=== PATIENT | male | born 1935 | race Caucasian/White ===

== ENCOUNTER 2016-10-08 22:47 | Inpatient (IN) | payer MEDICARE, BC ==
[~2016-10-08] VITALS: Ht 170.2 cm; Wt 64.4 kg
--- NOTE | 2016-10-08 23:00 | NUR ---
REPAIRER AUTO CLOCKS ADMISSION PT ARRIVED ON UNIT. AAOX4, NO C/O OF PAIN OR DISCOMFORT, NO S/S OF RESPIRATORY DISTRESS. NO N/V/D OR FEELING DIZZY. TELE SHOWING SR. SKIN ISSUES NOTED. B/L FEET RED AND +1 NON-PITTING. PT STATES HE WAS HOSPITALIZED 4 WEEKS AGO FOR DVT IN LEGS --> ON COUMADIN. IV INTACT AND PATENT. V/S STABLE AT THIS TIME. PATIENT ORIENATED TO UNIT AND CALL LIGHT. AWAITING MD ORDERS. WILL CONT TO MONITOR.
[2016-10-09] MEDS ORDERED: ZOLPIDEM TARTRATE 5 MG TABLET PO PRN
[2016-10-09] MEDS ORDERED: ENOXAPARIN SODIUM 30 MG/0.3 ML DISP.SYRIN SQ SCH
[2016-10-09] MEDS: CEFTRIAXONE 1 G in IV D5W 50 ML IV SCH ×2
[2016-10-09] MEDS ORDERED: ACETAMINOPHEN 325 MG TABLET PO PRN
[2016-10-09] MEDS ORDERED: Z GUARD REMEDY 2 OZ OINT TP PRN
[2016-10-09] MEDS ORDERED: ONDANSETRON HCL/PF 4 MG/2 ML VIAL IVP PRN
--- NOTE | 2016-10-09 00:19 | NUR ---
RN NOTE GINGER ESPARZA, PT RECEIVED 1 GRAM @ 1600 10/08 AT [facility]
--- NOTE | 2016-10-09 00:50 | NUR ---
RN NOTE PT REFUSED LOVENOX DESPITE ENCOURAGEMENT AND TEACHING X3. WILL MONITOR.
[2016-10-09] MEDS ORDERED: IV SET PRIMARY PUMP SET 1 EA INFUS.SET MC ONE (01:22)
[2016-10-09] MEDS ORDERED: IV NS 0.9% 1,000 ML ONE (01:22)
[2016-10-09] MEDS ORDERED: SULF500T6 PO (02:57)
[2016-10-09] MEDS ORDERED: PRED10TA PO (02:57)
[2016-10-09] MEDS ORDERED: CARB1TAB21 PO (02:57)
[2016-10-09] MEDS ORDERED: WARF2.5T6 PO (02:57)
[2016-10-09] MEDS ORDERED: OXYB5TAB11 PO (02:57)
[2016-10-09] MEDS ORDERED: WARF5TAB6 PO (02:57)
[2016-10-09] MEDS ORDERED: FOLI1TAB16 PO (02:57)
[2016-10-09] MEDS ORDERED: BUPR150T10 PO (02:57)
--- NOTE | 2016-10-09 06:08 | NUR ---
RN NOTE NO SIGNIFICANT CHANGES THIS SHIFT. PT RESTING WITH EYES CLOSED. NO DISTRESS AT THIS TIME. BREATHING NON-LABORED AND EVEN ON ROOM. TELE SHOWING SR. IV INTACT, TOLERATING FLUIDS WELL. CALL LIGHT IN REACH, FALL PRECAUTIONS RENDERED. WILL F/U WITH DAY SHIFT FOR RICKEY.
[2016-10-09 06:19] LABS: APPEARANCE,URINE CLEAR (CLEAR); BILIRUBIN,URINE NEGATIVE (NEGATIVE); BLOOD, URINE 1+ Ery/uL (NEGATIVE); COLOR,URINE YELLOW (YELLOW); KETONES,URINE NEGATIVE (NEGATIVE); LEUKOCYTE ESTERASE ,URINE NEGATIVE (NEGATIVE); NITRITE, URINE NEGATIVE (NEGATIVE); PROTEIN,URINE NEGATIVE (NEGATIVE); UGLUCOSE TRACE mg/dL (NEGATIVE); UROBILINOGEN,URINE 0.2 EU/dL (0.2)
[2016-10-09 06:24] LABS: ADD URINE CULTURE NO; BACTERIA,URINE None seen /HPF (None Seen); RBC,URINE 0-2 /HPF (0-2); SQUAMOUS EPITHELIAL CELL,UR 0-2 /HPF (None Seen); WBC,URINE 0-2 /HPF (0-3)
--- NOTE | 2016-10-09 07:30 | NUR ---
CERTIFIED INDOOR ENVIRONMENTALIST NOTES RECEIVED PATIENT AWAKE ON BED, AOX3 ABLE TO MAKE NEEDS KNOWN, BREATHING EVEN AND NON LABORED. WITH IVF'S ON PROGRESS ON HIS LEFT WRIST INTACT AND PATENT. CALL LIGHT WITHIN REACH, BED IN LOW POSITION FOR SAFETY MEASURES. WILL CONTINUE TO MONITOR.
[2016-10-09 08:00] VITALS: BP 159/74
[2016-10-09 08:19] VITALS: BP 159/74
[2016-10-09 08:22] LABS: BASOPHILS % (AUTO) 0.2 % (0.0-2.0); EOSINOPHILS % (AUTO) 0.2 % (0.0-6.0); HEMATOCRIT 37 % (39-51); HEMOGLOBIN 11.8 g/dL (13.5-17.5); LYMPHOCYTES % (AUTO) 11.8 % (20.0-44.0); MEAN CORPUSCULAR HEMOGLOBIN 28 PG (26.0-33.0); MEAN CORPUSCULAR HGB CONC 32 g/dl (31.0-36.0); MEAN CORPUSCULAR VOLUME 88 fL (80-96); MONOCYTES # (AUTO) 0.8 /CMM (0.1-1.30); MONOCYTES % (AUTO) 9.6 % (2.0-12.0); NEUTROPHILS # (AUTO) 6.7 /CMM (1.8-8.9); NEUTROPHILS % (AUTO) 78.2 % (43.0-81.0); PLATELET COUNT (AUTO) 202 /CMM (150-450); RDW COEFFICIENT OF VARIATION 15.6 (11.5-15.0); RED BLOOD CELL COUNT(AUTO) 4.21 MIL/uL (4.5-6.0); WHITE BLOOD COUNT (AUTO) 8.5 K/uL (4.3-11.0)
[2016-10-09 08:44] LABS: ALBUMIN 2.7 g/dL (3.4-5.0); BILIRUBIN,TOTAL 0.4 mg/dL (0.2-1.0); CALCIUM, SERUM 7.6 mg/dL (8.5-10.1); CREATININE 1.2 mg/dL (0.6-1.3); MAGNESIUM 2.5 mg/dL (1.8-2.4); TOTAL PROTEIN, SERUM 5.9 g/dL (6.4-8.2)
[2016-10-09 08:50] LABS: THYROID STIMULATING HORMONE 0.805 uIU/mL (0.358-3.74)
--- NOTE | 2016-10-09 10:15 | NUR ---
NUCLEAR PROCESS ENGINEER NOTES PATIENT REFUSED TO DO HIS ECHOCARDIOGRAM. HE STATED THAT "MY HEART IS FINE'.
--- NOTE | 2016-10-09 10:40 | NUR ---
FOOT PRESS OPERATOR NOTES DR. SUÁREZ MADE AWARE PT REFUSED ECHOCARDIOGRAM.
--- NOTE | 2016-10-09 10:50 | NUR ---
CREDIT SUPPORT COUNSELOR NOTES DR. SUÁREZ MADE AWARE TO RECONCILE THE HOME MEDS.
[2016-10-09] MEDS: ENOXAPARIN SODIUM 40 MG/0.4 ML DISP.SYRIN SQ SCH (11:21)
[2016-10-09 12:00] VITALS: BP_SYST 140; BP_SYST 144; BP_SYST 146; BP_DIAS 80; BP_DIAS 81
[2016-10-09] MEDS: IV NS 0.9% 1,000 ML IV PRN (12:22)
--- NOTE | 2016-10-09 14:00 | NUR ---
MS RN NOTES SPOKE TO THE PATIENT'S RP RIVERA AND EXPLAINED THAT THE HOME MEDICATIONS NEED TO BE REVIEWED BY THE DOCTOR FIRST IF WE NEED TO CONTINUE OR NOT. RIVERA VERBALIZED UNDERSTANDING.
[2016-10-09 16:00] VITALS: BP 168/98
[2016-10-09] MEDS ORDERED: SULFADIAZINE 500 MG PO SCH (17:00)
--- NOTE | 2016-10-09 17:00 | NUR ---
INTERNAL REVIEW AND AUDIT COMPLIANCE NOTES DUE MEDS GIVEN, NEEDS ALL ATTENDED AND ANTICIPATED
[2016-10-09] MEDS: OXYBUTYNIN CHLORIDE 5 MG TABLET PO SCH (17:21)
[2016-10-09] MEDS: CARBIDOPA/LEVODOPA 25/100 MG 1 UDTAB PO SCH (17:21)
[2016-10-09] MEDS: SULFASALAZINE 500 MG TABLET PO SCH (18:32)
--- NOTE | 2016-10-09 19:01 | NUR ---
MS RN NOTES ENDORSED TO INCOMING SHIFT FOR CONTINUITY OF CARE. PATIENT ENCOURAGE TO USE HIS CALL LIGHT FOR ASSISTANCE.
--- NOTE | 2016-10-09 19:30 | NUR ---
ANALYSIS CONSULTANT NOTES RECEIVED PATIENT AWAKE ON BED, AOX3 ABLE TO MAKE NEEDS KNOWN, BREATHING EVEN AND NON LABORED. WITH IVF'S ON PROGRESS ON HIS LEFT WRIST INTACT AND PATENT. CALL LIGHT WITHIN REACH, BED IN LOW POSITION FOR SAFETY MEASURES. WILL CONTINUE TO MONITOR.
[2016-10-09 20:10] VITALS: BP 164/91
[2016-10-09 22:00] VITALS: BP 164/91
[2016-10-10] VITALS (7 sets, daily range): BP systolic 125–179; BP diastolic 71–96
[2016-10-10] MEDS: CEFTRIAXONE 1 G in IV D5W 50 ML IV SCH ×2
--- NOTE | 2016-10-10 00:30 | NUR ---
CARDIO TECH NOTE TELE SR 90. PATIENTS BP 179/96. MD NOTIFIED. WILL CONTINUE TO MONITOR.
--- NOTE | 2016-10-10 03:54 | NUR ---
ONLINE EDITOR NOTE TELE SR 88. PATIENT S BP IS 166/95. NEW ORDERS FOR CLONIDINE 0.1MG Q6H FOR SBP>160. PATIENT REFUSING MEDICATION. PATIENT STATES THAT HIS BLOOD PRESSURE GETS HIGH, BUT THEN COMES DOWN OF ITS OWN. HE DOES NOT WANT MEDICATION. EXPLAINED ALL RISKS AND BENEFITS. PATIENT VERBALIZED UNDERSTANDING OF TEACHINGS. WILL CONTINUE TO MONITOR.
[2016-10-10] MEDS ORDERED: CLONIDINE HCL 0.1 MG TABLET PO PRN (04:00)
--- NOTE | 2016-10-10 05:00 | NUR ---
RELATIONSHIP CONSULTANT NOTE PATIENT REFUSING PICTUREAS AT THIS TIME. WILL TRY AGAIN LATER.
--- NOTE | 2016-10-10 06:39 | NUR ---
SENIOR COMPUTER SPECIALIST NOTE PATIENT STABLE. KEPT CLEAN, DRY AND COMFORTABLE. WILL ENDORSE TO DAY SHIFT FOR RICKEY.
--- NOTE | 2016-10-10 07:10 | NUR ---
industrial relations officer Initial notes received patient in sitting on a chair, comfortable. On room air and tolerated well. No SOB or distress noted. IV intact and patent. no complaint of pain or discomfort noted. Kept patient clean and comfortable in bed, call light with in patient reach, will continue to monitor accordingly. On tele monitor ST heart rate of 100.
[2016-10-10] MEDS: CARBIDOPA/LEVODOPA 25/100 MG 1 UDTAB PO SCH ×3 (08:45→16:35)
[2016-10-10] MEDS: OXYBUTYNIN CHLORIDE 5 MG TABLET PO SCH ×2 (08:45→16:35)
[2016-10-10] MEDS: predniSONE 10 MG TABLET PO SCH (08:46)
[2016-10-10] MEDS: FOLIC ACID 1 MG TABLET PO SCH (08:46)
[2016-10-10] MEDS: buPROPion SR 150 MG TABLET.ER PO SCH (08:46)
[2016-10-10] MEDS: VALSARTAN 80 MG TABLET PO SCH (08:50)
[2016-10-10] MEDS: SULFASALAZINE 500 MG TABLET PO SCH ×2 (08:51→16:35)
[2016-10-10] MEDS: ENOXAPARIN SODIUM 40 MG/0.4 ML DISP.SYRIN SQ SCH (09:00)
[2016-10-10 11:26] LABS: INR 1.98 (0.87-1.13); PROTHROMBIN TIME 22.1 SECS (9.5-12.7)
[2016-10-10] MEDS: IV NS 0.9% 1,000 ML IV PRN (16:40)
--- NOTE | 2016-10-10 19:14 | NUR ---
DEDICATED LOCAL TRUCK DRIVER CLOSING NOTES All needs provided, attended, and anticipated. On tele monitor SR heart rate of 88. Kept patient clean and comfortable in bed, call light with in patient reach, will continue to monitor accordingly. Endorsed to next shift RN to continue care.
--- NOTE | 2016-10-10 19:30 | NUR ---
COOK'S ASSISTANT NOTE PATIENT STABLE. TELE SR 80. NO RESPIRATORY DISTRESS OR SOB NOTED. PATIENT DENIES ANY PAIN AT THIS TIME. SITTER AT BEDSIDE. IV SITE INTACT, WITH FLUIDS RUNNING ORDERED. BED LOCKED AND IN LOWEST POSITION. SIDE RAILS UP, CALL LIGHT WITHIN REACH. WILL CONTINUE TO MONITOR.
[2016-10-11] VITALS: BP 164/92
[2016-10-11] MEDS: CEFTRIAXONE 1 G in IV D5W 50 ML IV SCH (00:31)
[2016-10-11] MEDS ORDERED: SECONDARY IV SET 1 EA INFUS.SET MC ONE (00:32)
[2016-10-11 04:00] VITALS: BP 166/90
--- NOTE | 2016-10-11 07:15 | NUR ---
cook tortilla Initial notes Received patient in bed, awake, head of bed elevated, no SOB or distress noted. On room air and tolerated well. On tele monitor SR heart rate of 80, no complaint of pain or discomfort noted, nor chest pain. IV intact and patent. Kept patient clean and comfortable in bed, call light with in patient reach, will continue to monitor accordingly.
[2016-10-11 07:42] LABS: INR 1.5 (0.87-1.13); PROTHROMBIN TIME 16.5 SECS (9.5-12.7)
[2016-10-11 08:00] VITALS: BP 150/80
[2016-10-11] MEDS: predniSONE 10 MG TABLET PO SCH (08:18)
[2016-10-11] MEDS: buPROPion SR 150 MG TABLET.ER PO SCH (08:18)
[2016-10-11] MEDS: SULFASALAZINE 500 MG TABLET PO SCH ×2 (08:18→16:44)
[2016-10-11] MEDS: OXYBUTYNIN CHLORIDE 5 MG TABLET PO SCH ×2 (08:18→16:44)
[2016-10-11] MEDS: CARBIDOPA/LEVODOPA 25/100 MG 1 UDTAB PO SCH ×3 (08:18→16:46)
[2016-10-11] MEDS: FOLIC ACID 1 MG TABLET PO SCH (08:18)
[2016-10-11] MEDS: VALSARTAN 80 MG TABLET PO SCH (08:19)
[2016-10-11] MEDS: IV NS 0.9% 1,000 ML IV PRN (08:19)
[2016-10-11 09:59] LABS: BASOPHILS % (AUTO) 0.3 % (0.0-2.0); EOSINOPHILS % (AUTO) 0.7 % (0.0-6.0); HEMATOCRIT 35 % (39-51); HEMOGLOBIN 11.5 g/dL (13.5-17.5); LYMPHOCYTES # (AUTO) 1.1 /CMM (0.8-4.8); LYMPHOCYTES % (AUTO) 16.6 % (20.0-44.0); MEAN CORPUSCULAR HEMOGLOBIN 29 PG (26.0-33.0); MEAN CORPUSCULAR HGB CONC 33 g/dl (31.0-36.0); MEAN CORPUSCULAR VOLUME 88 fL (80-96); MONOCYTES # (AUTO) 0.9 /CMM (0.1-1.30); MONOCYTES % (AUTO) 13.8 % (2.0-12.0); NEUTROPHILS # (AUTO) 4.3 /CMM (1.8-8.9); NEUTROPHILS % (AUTO) 68.6 % (43.0-81.0); PLATELET COUNT (AUTO) 191 /CMM (150-450); RDW COEFFICIENT OF VARIATION 15.5 (11.5-15.0); RED BLOOD CELL COUNT(AUTO) 4.04 MIL/uL (4.5-6.0); WHITE BLOOD COUNT (AUTO) 6.3 K/uL (4.3-11.0)
[2016-10-11] MEDS ORDERED: DABIGATRAN ETEXILATE MESYLATE 150 MG CAPSULE PO SCH (10:00)
[2016-10-11 10:04] LABS: CALCIUM, SERUM 7.6 mg/dL (8.5-10.1); CREATININE 1.1 mg/dL (0.6-1.3); POTASSIUM 3.6 mmol/L (3.5-5.1)
[2016-10-11] MEDS: ENOXAPARIN SODIUM 40 MG/0.4 ML DISP.SYRIN SQ SCH (10:47)
[2016-10-11] MEDS: DABIGATRAN ETEXILATE MESYLATE 150 MG CAPSULE PO SCH ×2 (11:06→16:45)
[2016-10-11] MEDS ORDERED: WARF2TAB57 PO (12:55)
[2016-10-11] MEDS ORDERED: Valsartan PO (12:55)
[2016-10-11] MEDS ORDERED: HEPA50008 IJ (12:55)
[2016-10-11 16:00] VITALS: BP 145/79
[2016-10-11 16:25] VITALS: BP 145/79
--- NOTE | 2016-10-11 17:57 | NUR ---
ms anesthesiology crna notes called [facility] and spoke to Edwige (RN) and report given. Discharge instructions given. Patient is alert and Oriented x 2, with confusion. IV discontinued and pressured applied to prevent from bleeding. Patient's made aware of the transfer. Pictures taken and filed in the patient chart. Flu is out of season and Pneumonia vaccine refused. Vital signs checked and recorded. EMT ambulance came to bean picker machine operator the patient. Patient left via gurney accompanied by 2 EMT, no pain or discomfort noted, nor SOB or distress. MD and charge nurse aware.
== END 2016-10-11 17:48 | DRG 683 ==
LOC: MED 22:47 → TELE 10-09 00:21 → MED 10-11 11:23
PROVIDERS: ADMIT Nurse Practitioner Acute Care; ATTEND Nurse Practitioner Acute Care
DX: N17.0 Acute kidney failure with tubular necrosis (principal); K51.90 Ulcerative colitis, unspecified, without complications; D68.59 Other primary thrombophilia; E44.0 Moderate protein-calorie malnutrition; R55 Syncope and collapse; G20 Parkinson's disease; Z86.718 Personal history of other venous thrombosis and embolism; Z79.01 Long term (current) use of anticoagulants; E86.0 Dehydration; F03.90 Unspecified dementia, unspecified severity, without behavioral disturbance, psychotic disturbance, mood disturbance, and anxiety; Z91.81 History of falling; Z68.22 Body mass index [BMI] 22.0-22.9, adult
CPT/HCPCS: 36415; 80048-TC; 80053-TC; 80061-TC; 81000-TC; 83540-TC; 83735-TC; 84100-TC; 84443-TC; 84484-TC; 85025-TC; 85610-TC; 87081-TC; 87086-TC; 97001-TC; A6402; J0696; J1650; J7030; J7060; Z7610